=== PATIENT | male | born 1975 | race Caucasian/White ===

== ENCOUNTER 2025-07-06 09:50 | Emergency (ER) | payer OTHER ==
[~2025-07-06] VITALS: Ht 165.1 cm; Wt 73.0 kg
[2025-07-06 09:54] VITALS: O2SAT 98
[2025-07-06 11:18] LABS: BASOPHILS % 0.3 % (0.0-2.0); EOSINOPHILS % 1.6 % (0.0-5.0); HEMATOCRIT. 41.0 % (42.0-52.0); HEMOGLOBIN. 14.1 g/dL (14.0-18.0); LYMPHOCYTES % 24.6 % (20.0-50.0); MEAN PLATELET VOLUME 9.2 fl (7.4-10.4); MONOCYTES % 9.1 % (2.0-8.0); NEUTROPHILS % 64.4 % (40.0-76.0); PLATELET 288 x1000/uL (130-400); RED BLOOD CELL COUNT 4.59 mill/uL (4.7-6.1); RED CELL DISTRIBUTION WIDTH 12.3 % (11.6-14.6)
[2025-07-06 11:22] LABS: CREATININE 0.8 mg/dL (0.6-1.3); TROPONIN I HIGH SENSITIVITY < 4 ng/L (3.0-53)
[2025-07-06 11:23] LABS: UREA NITROGEN BLOOD 7 mg/dL (9-23)
[2025-07-06 11:24] LABS: ASPARTATE AMINOTRANSFERASE 20 IU/L (<34)
[2025-07-06 11:25] LABS: BILIRUBIN DIRECT 0.5 mg/dL (<=3.0); BILIRUBIN TOTAL 2.1 mg/dL (0.1-1.0); PROTEIN TOTAL 7.3 g/dL (6.0-8.3)
[2025-07-06 12:12] VITALS: BP 106/65; PULSE 93; RESP 21; TEMP 37; O2SAT 99
== END 2025-07-06 12:45 | disposition left against medical advice (07) ==
LOC: ER 10:37 → CMPBEDREQ 07-07 08:10
DX: R07.89 Other chest pain (principal); F15.10 Other stimulant abuse, uncomplicated
CPT/HCPCS: 36415; 71045; 80048; 80076; 83880; 84484; 85025; 93005; 99285